=== PATIENT | female | born 1970 | race Caucasian/White ===

== ENCOUNTER 2024-03-09 14:41 | Outpatient (REF) | payer OTHER, SELFPAY ==
[2024-03-09 15:11] LABS: MANUAL DIFF FLAG NO
[2024-03-09 15:29] LABS: Basophils Absolute Auto 0.1 X10*3/uL (0.0-0.2); Basophils Percent Auto 0.7 % (0-2); Eosinophils Absolute Auto 0.1 X10*3/uL (0.0-0.4); Eosinophils Percent Auto 1.9 % (0-4); Hematocrit 41.9 % (37.0-47.0); Hemoglobin 14.4 g/dl (12.0-16.0); Imm Gran Abs Auto 0.01 X10*3/uL (0.00-0.03); Imm Gran Pct Auto 0.1 % (0.0-0.4); Lymphocytes Absolute Auto 2.3 X10*3/uL (1.2-4.9); Lymphocytes Percent Auto 29.8 % (20-40); Mean Corpuscular HGB Conc 34.4 g/dl (31.0-35.0); Mean Corpuscular Hemoglobin 30.1 pg (27.0-33.0); Mean Corpuscular Volume 87.7 fL (80.0-98.0); Mean Platelet Volume 9.4 fL (9.4-12.3); Monocytes Absolute Auto 0.5 X10*3/uL (0.1-1.2); Neutrophils Absolute Auto 4.6 x10*3/uL (2.0-8.3); Neutrophils Percent Auto 60.5 % (45-73); Platelet Count 316 X10*3/uL (160-400); Red Blood Count 4.78 X10*6/uL (4.20-5.50); Red Cell Distribution Width 13.5 % (11.0-16.0); White Blood Count 7.5 X10*3/uL (4.8-10.8)
[2024-03-09 15:32] LABS: Appearance Urine Cloudy; Color Urine Yellow; Glucose Urine UA Negative (Negative); Leukocyte Esterase Urine Small (1+) (Negative); Nitrite Urine Negative (Negative); PH 6.5 (5.0-9.0); UMIC TRIGGER UACC YES; Urine Blood Negative (Negative); Urine Ketones Trace mg/dL (Negative); Urine Protein Negative (Neg-Trace)
[2024-03-09 15:35] LABS: Bacteria Urine None Seen (None Seen); Hyaline Casts Urine 0-2 /LPF (0-2); RBC Urine 0-2 /HPF (0-2); UACC Culture Trigger YES
[2024-03-10 00:53] LABS: Alanine Aminotransferase 18 U/L (0-31); Albumin Level 4.9 g/dL (3.5-5.0); Alkaline Phosphatase 56 U/L (39-117); Anion Gap 14 (12-20); Aspartate Amino Transferase 21 U/L (5-31); Bilirubin Total 0.6 mg/dL (0.0-1.0); Blood Urea Nitrogen 11 mg/dL (9-16); Calcium 10.3 mg/dL (8.4-10.2); Carbon Dioxide 26 mmol/L (22-29); Chloride 103 mmol/L (96-108); Estimated Glomerular Filt Rate > 60; Glucose Random 87 mg/dL (60-115); Potassium 4.2 mmol/L (3.3-5.1); Sodium 139 mmol/L (135-145); Total Protein 8.1 g/dL (6.5-8.0)
[2024-03-12 19:09] LABS: Lyme Abs Screen <0.90 index
[2024-03-14 15:34] LABS: Renin 1.22 ng/mL/h (0.25-5.82)
[2024-03-14 19:44] LABS: Spotted Fever Group IgG Not Detected (Not Detected); Spotted Fever Group IgM Not Detected (Not Detected); Typhus Fever Group IgG Not Detected (Not Detected); Typhus Fever Group IgM Not Detected (Not Detected)
[2024-03-16 11:13] LABS: A. Phagocytophilum Ab IgM <1:20 (<1:20); E. Chaffeensis Ab IgG <1:64 (<1:64); E. Chaffeensis Ab IgM <1:20 (<1:20); Interpretation PAST INFECTION
== END 2024-03-09 14:42 | disposition home or self-care (01) ==
LOC: HO.LAB 14:41
PROVIDERS: PCP Internal Medicine; Visit Provider Physician Assistant
DX: R30.0 Dysuria (principal); T14.8XXA Other injury of unspecified body region, initial encounter; W57.XXXA Bitten or stung by nonvenomous insect and other nonvenomous arthropods, initial encounter
CPT/HCPCS: 36415; 80053; 81001; 82088; 84244; 85025; 86617; 86618; 86666; 86757; 87086

== ENCOUNTER 2025-08-05 14:36 | Outpatient (REF) | payer OTHER, SELFPAY ==
[2025-08-05 18:21] LABS: MANUAL DIFF FLAG NO
[2025-08-05 18:29] LABS: Hematocrit 44.2 % (37.0-47.0); Hemoglobin 14.5 g/dl (12.0-16.0); Imm Gran Abs Auto 0.01 X10*3/uL (0.00-0.03); Imm Gran Pct Auto 0.1 % (0.0-0.4); Lymphocytes Absolute Auto 2.0 X10*3/uL (1.2-4.9); Mean Corpuscular HGB Conc 32.8 g/dl (31.0-35.0); Mean Corpuscular Hemoglobin 29.2 pg (27.0-33.0); Mean Corpuscular Volume 88.9 fL (80.0-98.0); NRBC Abs Auto 0.000 X10*3/uL (0.0-0.012); NRBC Pct Auto 0.0 /100WBC (0.0-0.2); Platelet Count 325 X10*3/uL (160-400); Red Blood Count 4.97 X10*6/uL (4.20-5.50); White Blood Count 6.8 X10*3/uL (4.8-10.8)
[2025-08-05 19:22] LABS: Cholesterol 196 mg/dL (<200); HDL Cholesterol 57 mg/dL (>40); Triglycerides 141 mg/dL (<150)
[2025-08-05 19:42] LABS: Folate 5.1 ng/mL (> or = 4.0); Vitamin B12 409 pg/mL (200-900)
--- OUTSIDE RECORDS SUMMARY | 2025-08-05 21:07 | XMS_ITS | Continuity of Care Document ---
Author Organization [place] [facility], [facility] Address [address] [facility] [address] Assessment No assessment recorded. Plan of Treatment Reminders Order Date Submit Date Provider Last Modified By Organization Details Last Modified Time Details Appointments SDV 2024 02:00P M ORLANDO PHAM Not available Not available Not available ANNUAL EXAM 2025 03:30P M ORLANDO PHAM Not available Not available Not available Lab None recorded. Referral None recorded. Procedures None recorded. Surgeries None recorded. Imaging None recorded. Medication Orders tramadol 50 mg tablet 2024 025 [facility]/Pharmacy #[id number], [address] [place], [address], 08/05/2025 14:35:41 tizanidin e 4 mg tablet 2024 025 [facility]/Pharmacy #2024, [address] [place], [address], 08/05/2025 14:35:36 diclofena c sodium 75 mg tablet,de layed release 2024 025 [facility]/Pharmacy #2024, [address] [place], [address], 08/05/2025 14:35:36 Patient TargetsNo targets recorded. Patient InstructionsNo instructions recorded. Reason for Referral None Reported. Problems Name Problem SNOMED Code Status Onset Date Resolution Date Notes Provider Name and Address Organization Details Recorded Time History of depressi on 044419717 Active 2017 Not Available [facility] 12:28:19 Camacho betts 193532543 Active 2018 Not Available [facility] 0 12:28:19 Lactose intolera nce Active 2018 Not Available [facility] 0 12:28:19 Depressi ve disorder 40971459 Active 2018 recurrent Not Available [facility] 0 12:28:19 Edema of lower extremit y 788745099 Active 2021 ORLANDO PHAM [address] [place], [address], [facility] 2 12:11:30 Easy bruising 131313392 Active 2021 ORLANDO PHAM [address] [place], [address], [facility] 2 12:16:06 Acute urinary tract infectio n 531751997 Active 2022 ORLANDO PHAM [address] [place], [address], [facility] 3 09:45:50 Dysuria 96067992 Active 2023 ORLANDO PHAM [address] [place] [address], [address], [facility] 4 13:32:01 Finding of sensatio n of urinary bladder 041299064 Active 2023 ORLANDO PHAM [address] [place], [address], [facility] 4 13:35:41 Pain of toe of left foot 35514454523 9108 Active 2023 ORLANDO PHAM [address] [place], [address], [facility] 4 13:36:44 Pain in left foot 32378463835 9107 Active 2023 ORLANDO PHAM [address] [place], [address], [facility] 4 11:43:39 Lumbago with sciatica 057890056 Active 2023 ORLANDO PHAM [address] [place], [address], [facility] 4 10:53:02 Eczemato us dermatit is of eyelid 29103581 Active 2024 ORLANDO PHAM [address] [place], [address], [facility] 5 13:37:04 Primary insomnia 9580439 Active 2024 ORLANDO PHAM [address] [place], [address], [facility] 5 15:35:46 Vitamin D deficien cy 34787408 Active 2024 ORLANDO PHAM [address] [place], [address], [facility] 5 15:59:01 Fatigue 06891796 Active 2024 ORLANDO PHAM [address] [place], [address], [facility] 5 15:59:30 Acute low back pain 922697762 Active 2024 ORLANDO PHAM [address] [place], [address], [facility] 5 14:29:38 Problem Notes None recorded. Procedures Surgical History Date Name Laterality Status Provider Name and Address Organization Details Recorded Time 8 Most Recent Mammogram completed [facility] 01/12/2019 14:56:26 4 Date of Last Pap Smear completed [facility] 01/12/2019 14:57:30 Imaging Results None recorded. Procedure Notes None recorded. Medical Equipment None Reported. Allergies Allergen ID Allergen Name Allergen Category Reaction Reaction Severity Criticality Documentation Date Start Date Code Code System Note Provider Name and Address Organization Details Recorded Time 01305 avocado allergeni c extract food,medi cation diarrhea itching other Not available Not available Not available low 08/05/20252021 56128 2 RxNorm GI upset , itchy unrec ogniz ed react ion (text : GI Upset , code: 27427 005) (from exter nal sourc e) unrec ogniz ed react ion (text : Nause a and/o r Vomit ing, code: 86666 000) (from exter nal sourc e) Not Available [employer] - prod 5 14:00:05 64351 prednison e medicatio n Not available Not available Not available 08/05/20252020 8640 RxNorm Other react ion(s ): [place] do Gi upset / Itchy many sympt omsIt lori/H dean Not Available [place] [employer] - prod 5 14:00:05 3094 methylpre dnisolone medicatio n facial swelling Not available Not available 01/16/2019 6902 RxNorm Itch, hives on face [facility] 9 09:00:05 4326 hydrocort isone / neomycin / polymyxin B medicatio n hives moderate Not available 10/22/2020 36272 7 RxNorm ORLANDO PHAM [address] [place], [address], [facility] 1 11:27:52 4327 Flonase medicatio n rash moderate Not available 10/22/2020 12031 RxNorm ORLANDO PHAM [address] [place], [address], [facility] 1 11:28:13 8176 avocado allergeni c extract food anaphylax is Not available high 03/09/2024 96133 2 RxNorm Kike hamilton [facility] 4 13:25:21 Medications Name Sig Start Date Stop Date Status Note LastModified by Organization Details LastModified Time amoxicilli n 500 mg capsule TAKE 1 CAPSULE BY MOUTH 3 TIMES A DAY WITH FOOD, YOGURT, PROBIOTIC S FOR 10 DAYS UNTIL GONE 03/09 completed Not Available Not Available Not Available desonide 0.05 % topical cream APPLY SPARINGLY AND RUB GENTLY INTO THE AFFECTED AREA TWICE A DAY 03/20 completed Not Available Not Available Not Available neomycin-p olymyxin-h ydrocort 3.5 mg/mL-10,0 00 unit/mL-1 % ear solution INSTILL 4 DROPS INTO AFFECTED EAR(S) 3 TIMES A DAY 01/13 completed Not Available Not Available Not Available trazodone 50 mg tablet TAKE 1 TABLET BY MOUTH EVERY DAY AT BEDTIME 2024 active Not Available Not Available Not Avai lable azithromyc in 250 mg tablet TAKE 2 TABLETS BY MOUTH TODAY, THEN TAKE 1 TABLET DAILY FOR 4 DAYS 10/14 completed Not Available Not Available Not Available tizanidine 4 mg tablet Take 1 tablet every 6 hours by oral route as needed for 7 days. 2024 active Not Available Not Available Not Avai lable citalopram 10 mg tablet Take 1 tablet every day by oral route. 05/24 completed Not Available Not Available Not Available meloxicam 15 mg tablet TAKE 1 TABLET BY MOUTH EVERY DAY NEEDED 03/20 completed Not Available Not Available Not Available Tubersol 5 tub. unit/0.1 mL intraderma l injection solution Inject 0.1 mL by intraderm al route. 01/13 completed Not Available Not Available Not Available clobetasol 0.05 % topical cream APPLY THIN COAT TO AFFECTED AREA TWICE A DAY 03/20 completed Not Available Not Available Not Available tretinoin 0.05 % topical cream APPLY THIN LAYER TO FACE 2 X A WEEK AT NIGHT, ADVANCE GRADUALLY TO NIGHTLY AT BED TOLERATED 03/20 completed Not Available Not Available Not Available sulfametho xazole 800 mg-trimeth oprim 160 mg tablet TAKE 1 TABLET BY MOUTH TWICE A DAY FOR 7 DAYS 03/09 completed Not Available Not Available Not Available tramadol 50 mg tablet Take 1 tablet every 6 hours by oral route as directed for 7 days. 2024 active Not Available Not Available Not Avai lable triamcinol one acetonide 0.1 % topical cream APPLY A THIN LAYER TO THE AFFECTED AREA(S) BY TOPICAL ROUTE 2 TIMES PER DAY FOR 2 WEEKS 03/20 completed Not Available Not Available Not Available baclofen 20 mg tablet Take 1 tablet 3 times a day by oral route as needed for 10 days. 03/20 completed Not Available Not Available Not Available alprazolam 0.5 mg tablet take 1 tab 1 hour prior to flight, may repeat every 6 hours as needed while on flight 10/14 completed Not Available Not Available Not Available amoxicilli n 875 mg tablet PLEASE SEE ATTACHED FOR DETAILED DIRECTION S 07/08 completed Not Available Not Available Not Available doxycyclin e monohydrat e 100 mg capsule 01/13 completed Not Available Not Available Not Available diclofenac sodium 75 mg tablet,del ayed release Take 1 tablet twice a day by oral route with meals for 30 days. 2024 active Not Available Not Available Not Avai lable hydroxyzin e HCl 25 mg tablet Take 1 tablet every 6-8 hours by oral route for 30 days. 06/24 completed Not Available Not Available Not Available ergocalcif debi (vitamin D2) 1,250 mcg (50,000 unit) capsule TAKE ONE CAPSULE BY MOUTH ONE TIME PER WEEK 07/08 completed Not Available Not Available Not Available methylpred nisolone 4 mg tablets in a dose pack 24 mg PO on day 1, then decr. by 4 mg/day x5 days per dose pack instructi ons 01/16 completed Not Available Not Available Not Available albuterol sulfate HFA 90 mcg/actuat ion aerosol inhaler TAKE 2 PUFFS BY MOUTH EVERY 4 HOURS 10/14 completed rash on hands Not Available Not Available Not Available fluticason e propionate 50 mcg/actuat ion nasal spray,susp ension [place] 1 spray every day by intranasa l route. 06/24 completed Not Available Not Available Not Available naproxen 500 mg tablet PLEASE SEE ATTACHED FOR DETAILED DIRECTION S 03/09 completed Not Available Not Available Not Available amoxicilli n 875 mg-potassi um clavulanat e 125 mg tablet TAKE 1 TAB (875MG)BY MOUTH 2 TIMES A DAY X10 DAYS. TAKE W FOOD, YOGURT, PROBIOTIC S. FINISH ALL. 03/20 completed Not Available Not Available Not Available oxycodone 5 mg tablet Take 1 tablet every 4 hours by oral route as needed for 7 days. 03/20 completed Not Available Not Available Not Available cortisone Apply once a day 05/24 completed Not Available Not Available Not Available ibuprofen 200mg Take 2 tablet everyday prn 01/13 completed Not Available Not Available Not Available Vitamin D qd active Not Available Not Suzette ilable Not Available M-M-R II (PF) 1,000-12,5 00 TCID50/0.5 mL subcutaneo us solution 01/13 completed Not Available Not Available Not Available Flowflex COVID-19 Antigen Home Test kit FOLLOW INSTRUCTI ONS INCLUDED WITH THE PACKAGE. 03/09 completed Not Available Not Available Not Available Vitals Date Recorded Body height Body mass index (BMI) Body weight Heart rate Oxygen saturation Systolic And Diastolic Provider Name and Address Organization Details Last Updated DateTime 5 167.64 cm 24.9 kg/m2 18303.2 2 g 93 /min 98 % 128/78 mm[Hg] [facility] 5 14:09:12 Social History Question Answer Notes LastModified by Organizat ion Details LastModified Time Tobacco Smoking Status Former Smoker Not Available [facility] 06/24/2020 03:36:23 What Was The Date Of Your Most Recent Tobacco Screening? 08/05/2025 [email or web address] Information not available 08/05/2025 How Many Years Have You Smoked Tobacco? 5 [id number] Information not available 06/24/2020 Sex: Unknown Functional Status None recorded. Mental Status None recorded. Family History Relationship Description Onset Age of this Age Resolved Age Notes LastModified by Organization Details LastModified Time Mother Family history of malignant neoplasm Breast cancer [email or web address] Not available 01/12/2019 14:54:22 Father Coronary arterioscler osis sbucko Not available 2018 14:54:33 Medical History No medical history recorded. Gynecological History Statement/Question Response Date of Last Pap Smear 07/02/2014 Most Recent Mammogram 07/06/2018 Obstetrics History GPAL:G 0 P 0 0 0 0 Immunizations Vaccine Type Date Status Note Provider Nam e and Address Organization Details Recorded Time Tdap 11/02/2017 completed [facility] 07/08/2020 11:13:18 MMR 05/16/2020 completed Esperanza Jeff [facility] 07/08/2020 11:13:18 COVID-19, mRNA, LNP-S, PF, 100 mcg/0.5mL dose or 50 mcg/0.25mL dose 08/19/2020 completed Yuliet Jiménez [facility] 09/22/2020 09:47:51 COVID-19, mRNA, LNP-S, PF, 100 mcg/0.5mL dose or 50 mcg/0.25mL dose 09/19/2020 completed Yuliet Jiménez [facility] 09/22/2020 09:48:00 Past Encounters Encounter ID Performer Location Encounter Start Date Encounter Closed Date Diagnosis/Indication Diagnosis SNOMED-CT Code Diagnosis ICD10 Code Diagnosis IMO Codes Diagnosis Note [id number] Steven Segal [facility] [address] [facility],[place] [address] 08/05/2025 13:57:05 08/05/2025 14:37:39 Acute low back pain 349374845 M54.50 [id number] Health Concerns Section Related Observation LastModified by Organization Detai ls LastModified Time None Recorded Concern Status LastModified by Organization Details LastModified Time None Recorded Payers Encounter Date Sequence Insurance Name Policy Number Policy Fitzgerald Covered Member ID Fitzgerald Member ID Guarantor Name 08/05/2025 1 [employer] [id number] Rob Hargrove [id number] Rob Hargrove Notes Date Note Type Note Provider Name a nd Address Organization Details Recorded Time 08/05/2025 text/html ROS as noted in the HPI c/o low back pain the patient reports pain in the L side on the low backaround L3 to L4no radiation down the left legthe patient reports that the only thing that happened was her leaning down to close the reading intervention teacher, then sudden stabbing painlocalized, prob msk/msk strain, area is tight and inflamed, tender to palpitition on exam recommended alt therapy, previous treatment was ineffective, changing msk relaxer, new anti inflammatory and adding tramadol as opposed to oxy which patient would like to avoid use of will fu in a week to see how she is never got the XR of her back, script is still active, can go after today's appt OR[place]O PHAM [address] [facility], [place], [address], [facility] 08/05/2025 14:37:37 OBGyn Episode No OBEpisode recorded.
--- OUTSIDE RECORDS SUMMARY | 2025-08-05 21:08 | XMS_ITS | Encounter Summary ---
Author Organization [facility] Address [address] [facility] [address] [place] [address] Phone Care Team Providers Care Plater Barrel Name Role Phone Steven Segal Primary Care Provider [phone] EnriqueSteven dawson Unavailable Katerin Guallpa SEAM CHECKER Unavailable Yue Chambers NP Unavailable Clarissa Barnes MD Unavailable Lewis Kong MD Unavailable Unavailable Kathy Celestin SEAM CHECKER Unavailable Lynne Hays SEAM CHECKER Unavailable [phone] Pema Corea MD Unavailable Encounter Details Date Type Department Care Team (Latest Contact Info) Description 07/08/2020 Transcribe Orders Virtual Department [address] [place] [address] Honey Rascon PA [address] [place] [address] [place] [address] Other abnormalities of breathing (Primary Dx) Social History Tobacco Use Types Packs/Day Years Used Date Smoking Tobacco: Never Smokeless Tobacco: Never Alcohol Use Standard Drinks/Week Comments No 0 (1 standard drink = 0.6 oz pur e alcohol) Comments No Sex and Gender Information Value Date Recorded Sex Assigned at Female 01/03/2022 12:31 PM EDT Legal Sex Female 5:05 PM EST Gender Identity Female 01/03/2022 12:31 PM EDT Sexual Orientation Straight 01/03/2022 12 :32 PM EDT Occupation Industry Job Start Date Job End Date priscilla's Not on file Not on file Not on file documented as of this encounter Plan of Treatment Not on file documented as of this encounter Results * XR CHEST PA AND LATERAL 2 VIEWS (07/11/2020 11:49 AM EST) Anatomical Region Laterality Modality Chest Computed Radiogr aphy 07/11/2020 12:0 7 PM EST Impressions 07/11/2020 12:08 PM EST No evidence of active cardiopulmonary disease. POS [id number] Narrative 07/11/2020 12:08 PM EST No comparison studies are available. Frontal and lateral views reveal the lungs to be well-expanded and overall clear without focal infiltrates or pleural effusions present. The heart and pulmonary vessels are within normal limits in size and the visualized bony thorax appears intact. Procedure Note Fermin Wei MD - 07/11/2020 No comparison studies are available. Frontal and lateral views reveal thelungs to be well-expanded and overall clear without focal infiltrates orpleural effusions present. The heart and pulmonary vessels are withinnormal limits in size and the visualized bony thorax appears intact. IMPRESSION: No evidence of active cardiopulmonary disease. POS [id number] Honey PERRY IMG XR CHEST Final Resul t documented in this encounter Visit Diagnoses Diagnosis Other abnormalities of breathing- Primary Other abnormalities of breathing documented in this encounter Care Teams Plater Barrel Relationship Specialty Start Date End Date Steven Segal DO PCP - General 02/19/14 Steven Segal DO Historical LMR Provider 06/06/17 Katerin Guallpa NP [address] [facility] [address] [place] [address] Historical LMR Provider 06/06/17 2 Yue Chambers NP [address] [place] [address] Historical LMR Provider 06/06/17 2 Clarissa Barnes MD [address] [address] Historical LMR Provider 06/06/17 08/29/21 Lewis Kong MD Historical LMR Provider 06/06/17 08/29/21 Kathy Celestin NP [address] [place] [address] [email or web address] Historical LMR Provider 06/06/17 2 Lynne Hays NP [address] [place] [address] Historical LMR Provider 06/06/17 2 Pema Corea MD [address] [facility], 2nd [place] [address] Historical LMR Provider 06/06/17 documented as of this encounter Additional Source Comments The information contained in this document represents components of the legal health record. It is not the complete legal health record.[facility]
--- OUTSIDE RECORDS SUMMARY | 2025-08-05 21:08 | XMS_ITS | Encounter Summary ---
Author Organization [facility] Address [address] [facility] [address] [place] [address] Phone Care Team Providers Care Swimming Pool Servicer Name Role Phone Steven Segal DO Primary Care Provider [phone] Steven Segal DO Unavailable Katerin Guallpa PUBLIC HEALTH DOCTOR Unavailable [phone] Yue Chambers NP Unavailable Clarissa Barnes MD Unavailable [phone] Lewis Kong MD Unavailable Unavailable Kathy Celestin PUBLIC HEALTH DOCTOR Unavailable Lynne Hays PUBLIC HEALTH DOCTOR Unavailable [phone] Pema Corea MD Unavailable Encounter Details Date Type Department Care Team (Late st Contact Info) Description 07/07/2018 Ancillary Orders Virtual Department [address] [place] [address] Steven Segal DO [address] [facility] [address] [place] [address] Visit for screening mammogram Social History Tobacco Use Types Packs/Day Years [...] Industry Job Start Date Job End Date josephs Not on file Not on file Not on file documented as of this encounter Plan of Treatment Not on file documented as of this encounter Visit Diagnoses Diagnosis Visit for screening mammogram documented in this encounter Care Teams Swimming Pool Servicer Relationship Specialty Start Date End Date Steven Segal DO PCP - General 02/19/14 Steven Segal DO Historical LMR Provider 06/06/17 Katerin Guallpa NP [address] [place] [address] Historical LMR Provider 06/06/17 2 Yue Chambers PUBLIC HEALTH DOCTOR [address] [place] [address] Historical LMR Provider 06/06/17 2 Clarissa Barnes MD [address] [place] [address] Historical LMR Provider 06/06/17 08/29/21 Lewis Kong MD Historical LMR Provider 06/06/17 08/29/21 Kathy Celestin PUBLIC HEALTH DOCTOR [address] [place] [address] [email or web address] Historical LMR Provider 06/06/17 2 Lynne Hays NP [address] [place] [address] Historical LMR Provider 06/06/17 2 Pema Corea MD [address] [facility] [place] [address] [email or web address] Historical LMR Provider 06/06/17 documented as of this encounter Additional Source Comments The information contained in this document represents components of the legal health record. It is not the complete legal health record.[facility]
--- OUTSIDE RECORDS SUMMARY | 2025-08-05 21:08 | XMS_ITS | Encounter Summary ---
Author Organization [facility] Address [address] [employer] [facility] [address] [place] [address] Phone Care Team Providers Care School Bus Driver/Teacher Assistant Name Role Phone Steven Segal Primary Care Provider [phone] EnriqueSteven dawson Unavailable Katerin Guallpa DEPARTMENT HEAD COLLEGE [employer] UNIVERSITY Unavailable Yue Chambers NP Unavailable Clarissa Barnes MD Unavailable [phone] Lewis Kong MD Unavailable Unavailable Kathy Celestin DEPARTMENT HEAD COLLEGE OR UNIVERSITY Unavailable Lynne Hays DEPARTMENT HEAD COLLEGE OR UNIVERSITY Unavailable [phone] Pema Corea MD Unavailable Encounter Details Date Type Department Care Team (Latest Contact Info) Description 07/11/2020 Transcribe Orders Virtual Department [address] [place] [address] Honey Rascon PA [address] [place] [address] [place] [address] Other abnormalities of breathing (Primary Dx) Social [...] as of this encounter Visit Diagnoses Diagnosis Other abnormalities of breathing- Primary documented in this encounter Care Teams School Bus Driver/Teacher Assistant Relationship Specialty Start Date End Date Steven Segal DO PCP - General 02/19/14 Steven Segla DO Historical LMR Provider 06/06/17 Katerin Guallpa, DEPARTMENT HEAD COL[employer]GE [employer] UNIVERSITY [address] [place] [address] Historical LMR Provider 06/06/17 2 Yue Chambers DEPARTMENT HEAD [employer] UNIVERSITY [address] [place] [address] Historical LMR Provider 06/06/17 2 Clarissa Barnes MD [address] [place] [address] Historical LMR Provider 06/06/17 08/29/21 Lewis Kong MD Historical LMR Provider 06/06/17 08/29/21 Kathy Celestin, DEPARTMENT HEAD [employer] UNIVERSITY [address] [place] [address] [email or web address] Historical LMR Provider 06/06/17 2 Lynne Hays NP [address] [place] [address] Historical LMR Provider 06/06/17 2 Pema Corea MD [address] [facility], [address] [place] [address] [email or web address] Historical LMR Provider 06/06/17 documented as of this encounter Additional Source Comments The information contained in this document represents components of the legal health record. It is not the complete legal health record.[facility]
--- OUTSIDE RECORDS SUMMARY | 2025-08-05 21:08 | XMS_ITS | Encounter Summary ---
Author Organization [facility] Address [address] [place] [phone] Phone Care Team Providers Care Naval Engineer Name Role Phone Steven Segal DO Primary Care Provider [phone] Steven Segal DO Unavailable Encounter Details Date Type Department Care Team (Late st Contact Info) Description 06/28/2024 Procedure Pass [facility], [address] [address] Social History Tobacco Use Types Packs/Day Years Used Date Smoking Tobacco: Former Cigarettes Smokeless Tobacco: Never Alcohol Use Standard Drinks/Week Comments No 0 (1 standard drink = 0.6 oz pur e alcohol) Education Answer Date Recorded Are you interested in more education? Not on lloyd e 01/02/2023 Are you concerned about learning? Not on file 01/02/2023 No 01/02/2023 No 01/02/2023 Digital Access Answer Date Recorded No 01/15/2023 No 01/15/2023 Reliable internet access at home? Not on file 01/15/2023 Device with a working camera? Not on file Comments No Sex and Gender Information Value [...] documented as of this encounter Visit Diagnoses Not on filedocumented in this encounter Care Teams Naval Engineer Relationship Specialty Start Date End Date EnriqueSteven dawson DO [email or web address] PCP - General 02/19/14 Luzma Steven ArenasDO [email or web address] Historical LMR Provider 06/06/17 documented as of this encounter Additional Source Comments The information contained in this document represents components of the legal health record. It is not the complete legal health record.[facility]
--- OUTSIDE RECORDS SUMMARY | 2025-08-05 21:08 | XMS_ITS | Encounter Summary ---
Author Organization [facility] Address [address] [place] [phone] Phone Care Team Providers Care Synchro Assembler Name Role Phone Steven Segal DO Primary Care Provider [phone] Steven Segal DO Unavailable Encounter Details Date Type Department Care Team (Latest Contact Info) Description 03/12/2024 Transcribe Orders Virtual Department [address] [place] [address] Honey Rascon PA [address] [facility] [place] [address] [place] [address] Dysuria (Primary Dx) Social History Tobacco Use Types [...] documented as of this encounter Results * US Bladder (2024 12:14 PM EDT) Anatomical Region Laterality Modality Abdomen, Kidney Ultrasound 2024 12:3 3 PM EDT Impressions 2024 12:34 PM EDT 1. Normal bladder ultrasound. Narrative 2024 12:34 PM EDT US BLADDER Referring clinician's provided indication for this examination in [facility]: Outside Radiology Order; dysuria TECHNIQUE: Bladder Ultrasound. COMPARISON: None FINDINGS: Bladder: Bladder wall normal in thickness. No stone or mass. Bilateral ureteral jets seen. Prevoid bladder volume is 222 mL. There is no post void bladder residual. Procedure Note Julieta Mi MD - 2024 US BLADDER Referring clinician's provided indication for this examination in Epic:Outside Radiology Order; dysuria TECHNIQUE: Bladder Ultrasound. COMPARISON: None FINDINGS: Bladder: Bladder wall normal in thickness. No stone or mass. Bilateralureteral jets seen. Prevoid bladder volume is 222 mL. There is no postvoid bladder residual. IMPRESSION: 1. Normal bladder ultrasound. Honey PERRY IMG US RENAL Final Resul t documented in this encounter Visit Diagnoses Diagnosis Dysuria- Primary Dysuria documented in this encounter Care Teams Synchro Assembler Relationship Specialty Start Date End Date Steven Segal DO PCP - General 02/19/14 Steven Segal DO Historical LMR Provider 06/06/17 documented as of this encounter Additional Source Comments The information contained in this document represents components of the legal health record. It is not the complete legal health record.[facility]
--- OUTSIDE RECORDS SUMMARY | 2025-08-05 21:08 | XMS_ITS | Encounter Summary ---
Author Organization [facility] Address [address] [address] [place] [address] Phone Care Team Providers Care Servicing Manager Name Role Phone Steven Segal Primary Care Provider [phone] LuzmaSteven Unavailable Katerin Guallpa HOMEOPATHIC DOCTOR Unavailable Yue Chambers NP Unavailable Clarissa Barnes MD Unavailable [phone] Lewis Kong MD Unavailable Unavailable Kathy Celestin HOMEOPATHIC DOCTOR Unavailable Lynne Hays HOMEOPATHIC DOCTOR Unavailable [phone] Pema Corea MD Unavailable [phone] Encounter Details Date Type Department Care Team (Late st Contact Info) Description 12/26/2020 Procedure Pass [address] [address] Social History Tobacco Use Types Packs/Day Years [...] on filedocumented in this encounter Care Teams Servicing Manager Relationship Specialty Start Date End Date Luzma Steven ArenasDO PCP - General 02/19/14 Steven Segal DO Historical LMR Provider 06/06/17 Katerin Guallpa, HOMEOPATHIC DOCTOR [address] [place] [address] Historical LMR Provider 06/06/17 2 Yue Chambers, HOMEOPATHIC DOCTOR [address] [place] [address] Historical LMR Provider 06/06/17 2 Clarissa Barnes MD [address] [place] [address] Historical LMR Provider 06/06/17 08/29/21 Lewis Kong MD Historical LMR Provider 06/06/17 08/29/21 Kathy Celestin, HOMEOPATHIC DOCTOR [address] [place] [address] [email or web address] Historical LMR Provider 06/06/17 2 Lynne Hays, HOMEOPATHIC DOCTOR [address] [place] [address] Historical LMR Provider 06/06/17 2 Pema Corea MD [address] [place] [address], [address] [place] [address] [email or web address] Historical LMR Provider 06/06/17 documented as of this encounter Additional Source Comments The information contained in this document represents components of the legal health record. It is not the complete legal health record.[facility]
--- OUTSIDE RECORDS SUMMARY | 2025-08-05 21:08 | XMS_ITS | Data Portability ---
Author Organization [facility], Telehealth Patient Home Address [address] [place] [address] Assessment Encounter Date Assessment Date Assessment LastModified by Organization Details LastModified Time 01/13/2021 01/13/2021 doing well no major issues has been eating more carbs than usual but has been very active and is staying fit [email or web address] Not available 01/13/2021 09:32:53 03/08/2022 03/08/2022 Patient agreed and verbally consents to this audio and video Telehealth appt via a secure platform [email or web address] Not available 03/08/2022 12:15:53 Plan of Treatment Reminders Order Date Submit Date Provider Last Modified By Organization Details Last Modified Time Details Appointments SDV 2024 02:00P M [facility]O PHAM Not available Not available Not available ANNUAL EXAM 2025 03:30P M ORLANDO PHAM Not available Not available Not available Lab lipid panel, serum 2024 025 [facility] (Outpatient), [address] [place] [address], [address], 03/20/2025 16:02:49 vitamin D, 25-hydrox y, total, serum 2024 025 [facility] (Outpatient), [address] [place] [address], [address], 03/20/2025 16:02:49 brca (1+2) mutation analysis, blood or tissue 2024 025 [facility] (Outpatient), [address] [place], [address], 03/20/2025 15:44:06 ca 125, serum 2024 025 [facility] (Outpatient), [address] [place], [address], 03/20/2025 15:44:07 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, blood or tissue 2024 025 [facility] (Outpatient), [address] [place], [address], 03/20/2025 15:44:07 vitamin B12 + folate, serum or blood 2024 [facility] (Outpatient), [address] [place], [address], 03/20/2025 16:02:49 iron + TIBC + ferritin, serum 2024 025 [facility] (Outpatient), [address] [place], [address], 03/20/2025 16:02:49 TSH + free T4, serum 2024 025 [facility] (Outpatient), [address] [place], [address], 03/20/2025 16:02:49 CBC w/ auto diff 2024 025 [facility] (Outpatient), [address] [place], [address], 03/20/2025 16:02:49 hemoglobi n A1c, QN, blood 2024 025 [facility] (Outpatient), [address] [place], [address], 03/20/2025 16:02:49 urinalysi s complete, reflex culture 2023 024 [facility], [address] [place] [address], [address], 03/09/2024 13:41:44 CMP, serum or plasma 2023 024 [facility], [address] [place] [address], [address], 03/09/2024 13:41:44 CBC w/ auto diff 2023 024 [facility], [address] [place] [address], [address], 03/12/2024 12:00:07 renin activity + aldostero ne, plasma 2023 024 [facility], [address] [place] [address], [address], 03/09/2024 13:41:45 ehrlichia chaffeens is, igg+igm Ab, serum 2023 024 [facility], [address] [place] [address], [address], 03/09/2024 13:41:45 anaplasma phagocyto philum (hga/hge) igg+igm Ab, serum 2023 024 [facility], [address] [place] [address], [address], 03/09/2024 13:41:44 lyme disease igg+igm, serum, reflex western blot 2023 024 [facility], [address] [place] [address], [address], 03/13/2024 11:44:59 rickettsi a rickettsi i igg+igm Ab, serum 2023 024 [facility], [address] [place] [address], [place], [address], 03/09/2024 13:41:44 CMP, serum or plasma 2020 [facility], [address] [place] [address], [address], 01/16/2021 12:42:14 CBC w/ auto diff 2020 [facility], [address] [place] [address], [address], 01/16/2021 12:42:13 lipid panel, blood 2020 [facility], [address] [place] [address], [address], 01/16/2021 12:42:14 vitamin D, 25-hydrox y, total, serum 2020 [facility], [address] [place] [address], [address], 01/16/2021 13:09:54 TSH, serum or plasma 2020 021 [facility], [address] [place] [address], [address], 01/16/2021 12:42:14 Referral None recorded. Procedures None recorded. Surgeries None recorded. Imaging US, bladder 2023 024 [email or web address] Not available 03/12/2024 08:32:23 XR, foot, 3 or more view 2023 024 [email or web address] Not available 03/23/2024 09:20:05 US, duplex, venous, lower extremity 2021 022 [email or web address] [facility] [place], [facility], [place] [address], [place], [address], 03/26/2022 13:45:39 Medication Orders tramadol 50 mg tablet 2024 025 [facility], [address] [place], [address], 08/05/2025 14:35:41 tizanidin e 4 mg tablet 2024 025 [facility] [address] [place], [address], 08/05/2025 14:35:36 diclofena c sodium 75 mg tablet,de layed release 2024 025 [facility] [address] [place], [address], 08/05/2025 14:35:36 trazodone 50 mg tablet 2024 025 [facility] [address] [place], [address], 04/14/2025 08:45:54 Patient TargetsNo targets recorded. Patient InstructionsNo instructions recorded. Reason for Referral None Reported. Results Created Date Observation Date Name Description Value Unit Range Abnormal Flag Note LastModifiedBy Organization Detail LastModifiedTime 04/07/20 22 04/05/2022 US, tao x, emily s, lower [facility], [place] mity No observ ation record ed. [facility] [place] [address] [place] [address], [address], 04/19/2022 10:13:19 06/27/20 22 06/22/2022 MAMMO , scree yifan, digit al, bilat eral No observ ation record ed. [facility] [address] [place] [address], [address], 06/28/2022 08:28:52 07/26/20 23 07/22/2023 MAMMO , scree yifan, digit al, bilat eral No observ ation record ed. [address], [address], 07/26/2023 09:06:53 03/23/20 24 03/22/2024 XR, foot, 3 or more view No observ ation record ed. [email or web address] [facility] (Scheduling Dept) [address] [place], [address], 03/23/2024 11:43:17 01/18/20 25 01/16/2025 MAMMO , scree yifan, digit al, bilat eral No observ ation record ed. [email or web address] [address] [place], [address], 01/17/2025 17:07:12 Result Notes None recorded. Problems Name Problem SNOMED Code Status Onset Date Resolution Date Notes Provider Name and Address Organization Details Recorded Time History of depressi on 918875715 Active 2017 Not Available [facility] 0 12:28:19 [place] e 451229244 Active 2018 Not Available [facility] 0 12:28:19 Lactose intolera nce Active 2018 Not Available [facility] 0 12:28:19 Depressi ve disorder 43317179 Active 2018 recurrent Not Available [facility] 0 12:28:19 Edema of lower extremit y 655559341 Active 2021 OR[facility]O PHAM [address] [place], [address], [facility] 2 12:11:30 Easy bruising 789741687 Active 2021 ORLANDO PHAM [address] [place], [address], [facility] 2 12:16:06 Acute urinary tract infectio n 872817017 Active 2022 OR[place]O PHAM [address] [place], [address], [facility] 3 09:45:50 Dysuria 29189559 Active 2023 ORLANDO PHAM [address] [place], [address], [facility] 4 13:32:01 Finding of sensatio n of urinary bladder 034363140 Active 2023 ORLANDO PHAM [address] [place], [address], [facility] 4 13:35:41 Pain of toe of left foot 13521425372 9108 Active 2023 ORLANDO PHAM [address] [place], [address], [facility] 4 13:36:44 Pain in left foot 23603349023 9107 Active 2023 ORLANDO PHAM [address] [place], [address], [facility] 4 11:43:39 Lumbago with sciatica 343982364 Active 2023 ORLANDO PHAM [address] [place], [address], [facility] 4 10:53:02 Eczemato us dermatit is of eyelid 52837655 Active 2024 OR[facility] PHAM [address] [place], [address], [facility] 5 13:37:04 Primary insomnia 8826074 Active 2024 OR[facility]O PHAM [address] [place], [address], [facility] 5 15:35:46 Vitamin D deficien cy 89837848 Active 2024 ORLANDO PHAM [address] [place], [address], [facility] 5 15:59:01 Fatigue 91612348 Active 2024 OR[facility]O PHAM [address] [place], [address], [facility] 5 15:59:30 Acute low back pain 607713802 Active 2024 ORLANDO PHAM [address] [place], [address], [facility] 5 14:29:38 Problem Notes None recorded. Procedures Surgical History Date Name Laterality Status Provider Name and Address Organization Details Recorded Time 8 Most Recent Mammogram completed [facility] 01/12/2019 14:56:26 4 Date of Last Pap Smear completed [facility] 01/12/2019 14:57:30 Imaging Results None recorded. Procedure Notes None recorded. Medical Equipment None Reported. Allergies Allergen ID Allergen Name Allergen Category Reaction Reaction Severity Criticality Documentation Date Start Date Code Code System Note Provider Name and Address Organization Details Recorded Time 54478 avocado allergeni c extract food,medi cation diarrhea itching other Not available Not available Not available low 08/05/20252021 29862 2 RxNorm GI upset , itchy unrec ogniz ed react ion (text : GI Upset , code: 72234 005) (from exter nal sourc e) unrec ogniz ed react ion (text : Nause a and/o r Vomit ing, code: 57454 000) (from exter nal sourc e) Not Available [employer] - External Data Service - prod 5 14:00:05 60720 prednison e medicatio n Not available Not available Not available 08/05/20252020 8640 RxNorm Other react ion(s ): [place] do Gi upset / Itchy many sympt omsIt lori/H dean Not Available [employer] External Data Service - prod 14:00:05 3094 methylpre dnisolone medicatio n facial swelling Not available Not available 01/16/2019 6902 RxNorm Itch, hives on face [facility] 9 09:00:05 4326 hydrocort isone / neomycin / polymyxin B medicatio n hives moderate Not available 10/22/2020 34595 7 RxNorm [facility] PHAM [address] [place], [address], [facility] 1 11:27:52 4327 Flonase medicatio n rash moderate Not available 10/22/2020 55941 RxNorm [facility] PHAM [address] [place], [address], [facility] 1 11:28:13 8176 avocado allergeni c extract food anaphylax is Not available [facility] 03/09/2024 99985 2 [facility]Norm [facility] 4 13:25:21 Medications Name Sig Start Date [...] propionate 50 mcg/actuat ion nasal spray,susp ension [place] 1 spray every day by intranasa l [...] and Address Organization Details Last Updated DateTime 1 167.64 cm 25.6 kg/m2 16413.0 3 g 96 /min 98 % 110/60 mm[Hg] [facility] 1 09:23:40 Date Recorded Body height Body mass index (BMI) Body weight Heart rate Oxygen saturation Systolic And Diastolic Provider Name and Address Organization Details Last Updated DateTime 4 167.64 cm 24.9 kg/m2 59695.2 2 g 82 /min 99 % 114/74 mm[Hg] Kike [facility] 4 13:26:45 Date Recorded Body height Body mass index (BMI) Body weight Heart rate Oxygen saturation Systolic And Diastolic Provider Name and Address Organization Details Last Updated DateTime 5 167.64 cm 24.9 kg/m2 72682.2 2 g 79 /min 98 % 108/78 mm[Hg] Cristavilma Lemos[facility] 5 15:32:05 Date Recorded Body height Body mass index (BMI) Body weight Heart rate Oxygen saturation Systolic And Diastolic Provider Name and Address Organization Details Last Updated DateTime 5 167.64 cm 24.9 kg/m2 27138.2 2 g 93 /min 98 % 128/78 mm[Hg] Crista Roger [facility] 5 14:09:12 Social History Question Answer Notes LastModified by Organizat ion Details LastModified Time Tobacco Smoking Status Former Smoker Not Available [facility] 06/24/2020 03:36:23 What Was The Date Of Your Most Recent Tobacco Screening? 08/05/2025 [email or web address] Information not available 08/05/2025 How Many Years Have You Smoked Tobacco? 5 [id number] Information not available 06/24/2020 Sex: Unknown Functional [...] Organization Details Recorded Time Tdap 11/02/2017 completed Esperanza hamilton [facility] 07/08/2020 11:13:18 MMR 05/16/2020 completed Esperanza hamilton, [facility] 07/08/2020 11:13:18 COVID-19, mRNA, LNP-S, PF, 100 mcg/0.5mL dose or 50 mcg/0.25mL dose 08/19/2020 completed Yuliet hamilton [facility] 09/22/2020 09:47:51 COVID-19, mRNA, LNP-S, PF, 100 mcg/0.5mL dose or 50 mcg/0.25mL dose 09/19/2020 completed Yuliet hamilton [facility] 09/22/2020 09:48:00 Past Encounters Encounter ID Performer Location Encounter Start Date Encounter Closed Date Diagnosis/Indication Diagnosis SNOMED-CT Code Diagnosis ICD10 Code Diagnosis IMO Codes Diagnosis Note [id number] Steven Segal [facility] [address] [place] [address] 12/12/2017 10:26:56 12/12/2017 11:12:31 Allergic rhinitis 87942509 J30.2 I think the undereye swelling may be related to allergies suggest visine-A and zyrtec continue cortisone oint topically qd x 1-2 weeks f/u if no change or improvemen t Rib pain 605381719 R07.8 1 possible costochond ritis, given pain is reproducib le with palpation may be related to fall she had several days prior to pain starting continue ibuprofen and heating pad as it has improved significan tly since starting f/u if pain persists or worsen [id number] Steven Segal [facility] [address] [place] [place] [address] 05/24/2018 10:01:17 05/24/2018 10:29:35 Dermatitis of eyelid 93526528 H01.139 Acute uppe r respiratory infection 83901425 J06.9 MUCINEX DM + SUDAFED F/U IF NEEDED [id number] Steven Segal [facility] [address],[place] [address] 08/23/2018 09:39:13 08/23/2018 11:26:31 Abdominal pain 70788423 R10.9 appears to be resolved at this point unclear if sx were due to diary Diarrhea 17155472 R19.7 appears to be resolved at this point will consider further work up if recurs, but at this point testing would be inappropri ate may consider experiment ing with dairy products and if no sx, it is likely her sx were related to a transient stomach infection [id number] Steven Segal [facility] [address], [place] [address] 10/24/2018 09:54:30 10/24/2018 11:31:41 Allergic reaction 176095532 T78.40XA likely due to the new cream will avoid Contact dermatitis 47680 004 L25.9 triamcinol one is clumpy would like to try new cream [id number] Steven Segal [facility] [address], [place] [address] 01/16/2019 08:53:50 01/16/2019 09:15:25 Adult health examination 976370911 Z00.00 Screening for cardiovascular system disease 938901813 Z13.6 Vitamin D deficiency 347 39545 E55.9 [id number] Steven Segal [facility] [address], [place] [address] 05/19/2020 09:22:50 05/19/2020 09:40:32 Tuberculosis screening 724587953 Z11.1 [id number] Steven Segal [facility] [address] [place] [address] 05/21/2020 09:56:23 05/21/2020 11:14:56 Tuberculosis screening 067448989 Z11.1 [id number] Steven Segal [facility] [address], [place] [address] 07/08/2020 11:10:18 07/08/2020 11:42:28 Unable to take deep breaths 440521076 R06.89 will start with XR and inhaler and see if improvemen t may need CT may have component of anxiety with it as well would like to r/o other explanatio ns first ie asthma/kamryn ctive airway disease given hx of smoking History of depression 16 5337358 Z86.59 stable [id number] Steven Segal DO [facility] [address],[place] [address] 09/15/2020 14:58:57 09/15/2020 16:41:55 Acute otitis media 5656563 H65.02 will trial on abx and see if improvemen t Left later al elbow tendinopathy 3483838043 48068 M77.12 if no effect with higher dose NSAID, will set up with ortho will call if she would like referral patient agrees [id number] Steven Segal DO [facility] [address],[place] [address] 10/14/2020 16:12:50 10/14/2020 17:00:23 Otalgia of left ear 5765512714 885774 H92.02 will start patient on ear solution with steriod component to dry out fluid as well as flonase to dry out sinuses and/or clear sinuses so they drain correctly [id number] Steven Segal DO [facility] [address] [place] [address] 10/22/2020 09:50:11 10/22/2020 14:52:11 Pruritic rash 47982176 L28.2 patient is having an allergic reaction to either prior ear drop or current augmentin patient will stop all medication s and use benadryl twice per day Allergy to drug 12243172 2 Z88.1 patient will fu if no improvemen t to rash, should fade with time as the medication is cleared from her system Otalgia of left ear 1089 781174 626504 H92.02 patient will fu with ENT for evaluation since she has now failed three different abx and has no improvemen t in left ear pain [id number] tSeven Segal DO [facility] [address] [address] 01/13/2021 09:18:07 01/13/2021 10:00:56 Active or passive immunization 923589044 Z23 up to date Adult heal th examination 444473945 Z00.00 doing very well denies any issues [id number] Steven Segal [facility] [address] [facility] [address] [place] [address] 03/08/2022 10:10:08 03/08/2022 12:36:45 Edema of lower extremity 658039117 R60.0 will fu with getting labs from [facility] and ordering a US duplex LE bilateral to see if she has an insuffienc y or inflammati on Easy bruising 600002470 R58 waiting for labwork from [id number] Steven Segal DO [facility] [address] [facility] [address] [place] [address] 03/09/2024 13:20:24 03/09/2024 15:50:15 Active or passive immunization 720539502 Z23 advised Adult [facility] examination 484643155 Z00.00 BP is excellent Depression screening 171 239074 Z13.31 negative Dysuria 67177826 R30.0 patient still having urinary symptoms at this time Finding of sensation of urinary bladder 896319728 N32.89 will set up with testing for her bladder symptoms Tick bite 87533089 W57.X XXA will set up with lab work Pain of to e of left foot 0005362934 86529 M79.675 [id number] Steven Segal [facility] [address] [facility] [address] [place] [address] 03/20/2025 15:21:59 03/20/2025 16:18:42 Depression screening 915455393 Z13.31 negative Primary insomnia 2422137 F51.01 42189 trial trazodone 50 mg can start with half a tablet General ex amination of patient 862573692 Z00.00 782314 BP is excellent Family his tory of breast cancer 144629530 Z80.3 3783316 will set up with gene testing Vitamin D deficiency 347 63344 E55.9 50180 will recheck levels Fatigue 71878675 R53.83 5694120 will set up with retest levels Family his tory of Cardiovascular disease 047222552 Z82.49 [id number] will set up with recheck cholestero l [id number] Steven Segal DO [facility] [address],[place] [address] 08/05/2025 13:57:05 08/05/2025 14:37:39 Acute low back pain 749277998 M54.50 94361764 Health Concerns Section Related Observation LastModified by Organization Detai ls LastModified Time None Recorded Concern Status LastModified by Organization Details LastModified Time None Recorded Advance Directives Directive None Recorded Payers Insurance Date Sequence Insurance Name Policy Number Policy Fitzgerald Covered Member ID Fitzgerald Member ID Guarantor Name 08/05/2025 1 ANNMARIE [id number] Rob Hargrove [id number] Rob Hargrove Notes Date Note Type Note Provider Name a nc Address Organization Details Recorded Time 1 text/html Annual WellnessReported by PatientSocial/Behavio ral HistoryFor diet and nutrition, patient reportshealthy diet. For fracture risk, patient reportsno history of fractures,no recent explained fracture,no sudden unexplained fractures, andno previous musculoskeletal injuries. For physical activity, patient reportsexercises on a regular basis,recent increase in physical activity, andgood physical condition. For additional lifestyle factors, patient reportsno tobacco use,no alcohol intake, andstopped drinking alcohol.Mental Status:For depression risk, patient reportsnever feels sad, empty, or tearful,no loss of interest in activities,no significant changes in weight,no sleep disturbances or insomnia,no agitation,no loss of energy,no feelings of worthlessness or guilt,no thoughts of suicide,no history of depression, andno history of mood disorders.Functional AbilityFor hearing, patient reportsno loss of hearing. For vision, patient reportsno vision problems.ROS as noted in the HPI doing well no major issues Steven Segal DO [address] [place], [address], [facility] 01/13/2021 09:41:15 2 text/html ROS as noted in the HPI c/o abnormal bruising and LE edema R>L telemed phone callpatient consents to phone call the patient reports for the last couple of weeksthe patient reports that she has been having abnormal bruising on her upper anterior thighsthe [place] work, doesn't know what they didthe patient said that they were wnl the patient reports that her right and left leg are swollen, R more than left and she has tenderness around the knee of the right side with new bruising getting into [facility] to get the results of the labs she had done fu with an US duplex [facility]O PHAM [address] [place], [address], [facility] 03/08/2022 12:16:27 4 text/html Annual WellnessReported by PatientSocial/Behavio ral HistoryFor diet and nutrition, patient reportshealthy diet. For fracture risk, patient reportsno history of fractures,no recent explained fracture,no sudden unexplained fractures, andno previous musculoskeletal injuries. For physical activity, patient reportsexercises on a regular basis,recent increase in physical activity, andgood physical condition. For additional lifestyle factors, patient reportsno tobacco use,no alcohol intake, andstopped drinking alcohol.Mental Status:For depression risk, patient reportsnever feels sad, empty, or tearful,no loss of interest in activities,no significant changes in weight,no sleep disturbances or insomnia,no agitation,no loss of energy,no feelings of worthlessness or guilt,no thoughts of suicide,no history of depression, andno history of mood disorders.Functional AbilityFor hearing, patient reportsno loss of hearing. For vision, patient reportsno vision problems. the patient is still having urinary symptomsstill frequency and some sense of not urinary completely the patient has a lot of nocturia symptomsthe patient reports that [address] [place], [address], [facility] 03/09/2024 13:43:50 5 text/html Annual WellnessReported by PatientSocial/Behavio ral HistoryFor diet and nutrition, patient reportshealthy diet,discussed vitamin and supplement use,discussed portion control,discussed maintaining calcium balance, anddiscussed diet improvement. For fracture risk, patient reportsno history of fractures,no recent explained fracture,no sudden unexplained fractures, andno previous musculoskeletal injuries. For physical activity, patient reportsexercises on a regular basis,recent increase in physical activity, andgood physical condition. For additional lifestyle factors, patient reportsno tobacco useanddrinks alcohol (mild-moderate).Menta l Status:For depression risk, patient reportsnever feels sad, empty, or tearful,no loss of interest in activities,no significant changes in weight,no sleep disturbances or insomnia,no agitation,no loss of energy,no feelings of worthlessness or guilt,no thoughts of suicide,no history of depression, andno history of mood disorders.Functional AbilityFor hearing, patient reportsno loss of hearing. For vision, patient reportsno vision problems.ROS as noted in the HPI the patient is seeing a psych doctor for anxiety and PTSDneeds genetic screening for BRCA and CHEK2 since she has fam hx of breast cancer the patient will think about cortisone injection in her L shoulderwill keep note in the chart [place] [place], [address], [facility] 03/20/2025 16:06:15 5 text/html ROS as noted in the HPI c/o low back pain the patient reports pain in the L side on the low backaround L3 to L4no radiation down the left legthe patient reports that the only thing that happened was 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
--- OUTSIDE RECORDS SUMMARY | 2025-08-05 21:08 | XMS_ITS | Encounter Summary ---
Author Organization [facility] Address [address] [address] Phone Care Team Providers Care Chiropractor Assistant Name Role Phone Steven Segal DO Primary Care Provider [phone] Steven Segal DO Unavailable Katerin Guallpa PARACHUTE MENDER Unavailable [phone] Yue Chambers NP Unavailable Clarissa Barnes MD Unavailable [phone] Lewis Kong MD Unavailable Unavailable Kathy Celestin PARACHUTE MENDER Unavailable Lynne Hays PARACHUTE MENDER Unavailable [phone] Pema Corea MD Unavailable Encounter Details Date Type Department Care Team (Late st Contact Info) Description 05/19/2020 Ancillary Orders Virtual Department [address] [place] [address] Steven Segal DO 179 [facility] [place] [address] Encounter for pre-employment examination Social History Tobacco Use Types Packs/Day Years [...] as of this encounter Visit Diagnoses Diagnosis Encounter for pre-employment examination documented in this encounter Care Teams Chiropractor Assistant Relationship Specialty Start Date End Date Steven Segal DO PCP - General 02/19/14 Steven Sgeal DO Historical LMR Provider 06/06/17 Katerin Guallpa NP [address] [place] [address] Historical LMR Provider 06/06/17 2 Yue Chambers PARACHUTE MENDER [address] [place] [address] Historical LMR Provider 06/06/17 2 Clarissa Barnes MD [address] [place] [email or web address] Historical LMR Provider 06/06/17 08/29/21 Lewis Kong MD Historical LMR Provider 06/06/17 08/29/21 Kathy Celestin, PARACHUTE MENDER [address] [place] [address] [email or web address] Historical LMR Provider 06/06/17 2 Lynne Hays NP [address] [place] [address] Historical LMR Provider 06/06/17 2 Pema Corea MD 15 [facility], [address] [place] [address] [email or web address] Historical LMR Provider 06/06/17 documented as of this encounter Additional Source Comments The information contained in this document represents components of the legal health record. It is not the complete legal health record.[facility]
--- OUTSIDE RECORDS SUMMARY | 2025-08-05 21:08 | XMS_ITS | Encounter Summary ---
Author Organization [facility] Address 399 [facility] [address] [place] [address] Phone Care Team Providers Care Plant Production Manager Name Role Phone Steven Segal DO Primary Care Provider Steven Segal DO Unavailable Katerin Guallpa TRAY LINE WORKER Unavailable [phone] Yue Chambers NP Unavailable Clarissa Barnes MD Unavailable Lewis Kong MD Unavailable Unavailable Kathy Celestin TRAY LINE WORKER Unavailable Lynne Hays TRAY LINE WORKER Unavailable [phone] Pema Corea MD Unavailable Encounter Details Date Type Department Care Team (Late st Contact Info) Description 04/19/2018 Ancillary Orders Virtual Department [address] [place] [address] Steven Segal DO 179 [facility] [place] [address] [place] [address] Breast screening Social History Tobacco Use Types Packs/Day Years Used Date Smoking Tobacco: Never Assessed Comments Unknown Sex and Gender Information Value Date Recorded Sex Assigned at Female 01/03/2022 12:31 PM EDT Legal Sex Female 5:05 PM EST Gender Identity Female 01/03/2022 12:31 PM EDT Sexual Orientation Straight 01/03/2022 12 :32 PM EDT documented as of this encounter Plan of Treatment Not on file documented as of this encounter Results * BI MAMMOGRAM SCREENING WITH TOMOSYNTHESIS WITH CAD (BILATERAL) (07/06/2018 5:50 PM EST) Anatomical Region Laterality Modality Breast Left, Breast Right, Breast Bilateral Bila teral Mammography 07/07/2018 8:43 AM EST Impressions 07/07/2018 8:46 AM EST No findings suspicious for malignancy. In the absence of a worrisome palpable abnormality, annual screening mammography is recommended. BI-RADS CATEGORY: 2 - Benign finding. DENSITY: There are scattered fibroglandular densities. POS [id number] Narrative 07/07/2018 8:46 AM EST COMPARISON: 12/20/2011 through 03/21/2017. Bilateral 3-D tomosynthesis with 2-D reconstructions in the CC and MLO projection of each breast was obtained. Computer-aided detection system also utilized. No new mass, asymmetry, architectural distortion or suspicious calcifications have become apparent on either side. Chronic asymmetric densities in the central right breast are becoming less conspicuous Procedure Note Lewis Silva MD - 07/07/2018 COMPARISON: 12/20/2011 through 03/21/2017. Bilateral 3-D tomosynthesis with 2-D reconstructions in the CC and MLOprojection of each breast was obtained. Computer-aided detection systemalso utilized. No new mass, asymmetry, architectural distortion or suspiciouscalcifications have become apparent on either side. Chronic asymmetric densities in the central right breast are becomingless conspicuous IMPRESSION: No findings suspicious for malignancy. In the absence of a worrisomepalpable abnormality, annual screening mammography is recommended. BI-RADS CATEGORY: 2 - Benign finding. DENSITY: There are scattered fibroglandular densities. POS [id number] us Steven A Bigda DO IMG MG EXAMS Final Result documented in this encounter Visit Diagnoses Diagnosis Breast screening Breast screening, unspecified Breast screening Breast screening, unspecified documented in this encounter Care Teams Plant Production Manager Relationship Specialty Start Date End Date Bigda, Steven A, DO PCP - General 02/19/14 Steven SegalDO Historical LMR Provider 06/06/17 Katerin Guallpa NP [address] [place] [address] Historical LMR Provider 06/06/17 2 Yue Chambers TRAY LINE WORKER [address] [place] [address] Historical LMR Provider 06/06/17 2 Clarissa Barnes MD [address] [place] [email or web address] Historical LMR Provider 06/06/17 08/29/21 Lewis Kong MD Historical LMR Provider 06/06/17 08/29/21 Kathy Celestin TRAY LINE WORKER [address] [place] [address] [email or web address] Historical LMR Provider 06/06/17 2 Lynne Hays NP [address] [place] [address] Historical LMR Provider 06/06/17 2 Pema Corea MD [address] [place] [address] [email or web address] Historical LMR Provider 06/06/17 documented as of this encounter Additional Source Comments The information contained in this document represents components of the legal health record. It is not the complete legal health record.[facility]
--- OUTSIDE RECORDS SUMMARY | 2025-08-05 21:08 | XMS_ITS | Encounter Summary ---
Author Organization [facility] Address [address] [address] Phone Care Team Providers Care Skin Tanner Name Role Phone Steven Segal DO Primary Care Provider [phone] Steven Segal DO Unavailable Katerin Guallpa COVERSTITCH BINDER Unavailable [phone] Yue Chambers NP Unavailable Clarissa Barnes MD Unavailable [phone] Lewis Kong MD Unavailable Unavailable Kathy Celestin COVERSTITCH BINDER Unavailable Lynne Hays COVERSTITCH BINDER Unavailable Pema Corea MD Unavailable Encounter Details Date Type Department Care Team (Late st Contact Info) Description 10/23/2019 Ancillary Orders Virtual Department [address] [place] [address] Steven Segal DO 179 [facility] [place] [address] [place] [address] Breast screening Social History Tobacco Use Types [...] MAMMOGRAM SCREENING WITH TOMOSYNTHESIS WITH CAD (BILATERAL) (03/10/2020 2:27 PM EDT) Anatomical Region Laterality Modality Breast Left, Breast Right, Breast Bilateral Bila teral Mammography 03/10/2020 3:50 PM EDT Impressions 03/10/2020 3:51 PM EDT No mammographic evidence of malignancy. Recommend routine annual surveillance. BI-RADS CATEGORY: 1 - Negative. DENSITY: There are scattered fibroglandular densities. POS - [id number] Narrative 03/10/2020 3:51 PM EDT 49-year-old female with no current breast symptoms. Comparison made to previous on 07/06/2018 and as far back as 12/25/2012. Interpretation made in conjunction with computer-aided detection and tomosynthesis. There are scattered areas of fibroglandular density. There are no suspicious masses, areas of architectural distortion, or suspicious clusters of microcalcifications. Procedure Note Black Salter MD - 03/10/2020 49-year-old female with no current breast symptoms. Comparison made toprevious on 07/06/2018 and as far back as 12/25/2012. Interpretation madein conjunction with computer-aided detection and tomosynthesis. There are scattered areas of fibroglandular density. There are no suspicious masses, areas of architectural distortion, orsuspicious clusters of microcalcifications. IMPRESSION: No mammographic evidence of malignancy. Recommend routine annualsurveillance. BI-RADS CATEGORY: 1 - Negative. DENSITY: There are scattered fibroglandular densities. POS - [id number] us Steven A Bigda DO IMG MG EXAMS Final Result documented in this encounter Visit Diagnoses Diagnosis Breast screening Breast screening, unspecified Breast screening Breast screening, unspecified documented in this encounter Care Teams Skin Tanner Relationship Specialty Start Date End Date Steven SegalDO PCP - General 02/19/14 Steven Segal DagobertoDO Historical LMR Provider 06/06/17 Katerin Guallpa, YOMI [address] [place] [address] Historical LMR Provider 06/06/17 2 Yue Chambers COVERSTITCH BINDER [address] [place] [address] Historical LMR Provider 06/06/17 2 Clarissa Barnes MD [address] [place] [address] [email or web address] Historical LMR Provider 06/06/17 08/29/21 Lewis Kong MD Historical LMR Provider 06/06/17 08/29/21 Kathy Celestin, COVERSTITCH BINDER [address] [place] [address] [email or web address] Historical LMR Provider 06/06/17 2 Lynne Hays, COVERSTITCH BINDER [address] [place] [address] Historical LMR Provider 06/06/17 2 Pema Corea MD [address] [place] [address], [address] [place] [address] [email or web address] Historical LMR Provider 06/06/17 documented as of this encounter Additional Source Comments The information contained in this document represents components of the legal health record. It is not the complete legal health record.[facility]
--- OUTSIDE RECORDS SUMMARY | 2025-08-05 21:08 | XMS_ITS | Encounter Summary ---
Author Organization [facility] Address [address] [place] [address] Phone Care Team Providers Care Emergency Room Clerk Name Role Phone Steven Segal DO Primary Care Provider [phone] Steven Segal DO Unavailable Encounter Details Date Type Department Care Team (Late st Contact Info) Description 05/30/2023 Procedure Pass [facility], [address] [address] Social History Tobacco Use Types Packs/Day Years [...] on filedocumented in this encounter Care Teams Emergency Room Clerk Relationship Specialty Start Date End Date EnriqueSteven dawson DO [email or web address] PCP - General 02/19/14 Luzma Steven ArenasDO [email or web address] Historical LMR Provider 06/06/17 documented as of this encounter Additional Source Comments The information contained in this document represents components of the legal health record. It is not the complete legal health record.[facility]
--- OUTSIDE RECORDS SUMMARY | 2025-08-05 21:08 | XMS_ITS | Encounter Summary ---
Author Organization [facility] Address [address] [employer] [facility] [address] [place] [address] Phone Care Team Providers Care Hand Braille Transcriber Name Role Phone Steven Segal Primary Care Provider [phone] LuzmaSteven Unavailable Katerin Guallpa CITY PLANNING AIDE Unavailable Yue Chambers NP Unavailable Clarissa Barnes MD Unavailable [phone] Lewis Kong MD Unavailable Unavailable Kathy Celestin CITY PLANNING AIDE Unavailable Lynne Hays CITY PLANNING AIDE Unavailable [phone] Pmea Corea MD Unavailable [phone] Encounter Details Date Type Department Care Team (Latest Contact Info) Description 01/18/2019 Transcribe Orders [address] [address] Elyssa Tidwell PA-C [address] [place] [address] [email or web address] Avitaminosis D (Primary Dx); Routine general medical examination at a health care facility; Screening for ischemic heart disease Social History Tobacco Use Types Packs/Day Years [...] documented as of this encounter Results * (ABNORMAL) 25-OH vitamin D (01/18/2019 7:54 AM EDT) 25 [place] VIT D (TOTAL) 16(L) 30 - 60 ng/mL [facility] Blood 01/18/2019 7:54 AM EDT 01/18/2019 8:23 AM EDT November Diann BRYAN LAB BLOOD BKR ORDERABLES Fin al Result Performing Organization Address City/State/[facility] Co de Phone Number [address] [address] * (ABNORMAL) Lipid panel (01/18/2019 7:54 AM EDT) HDL 58 mg/dL [facility] Comment: Interpretation <40 mg/dL: Low HDL cholesterol (major risk factor for CHD) Greater than or equal to 60 mg/dL: High HDL cholesterol ( negative risk factor for CHD) HDL - cholesterol is affected by a number of factors, e.g. smoking, excerise, hormones, sex and age. CHOLESTEROL 166 0 - 240 mg/dL [facility] TRIGLYCERIDES 78 30 - 160 mg/dL [facility] LDL 92 50 - 129 mg/dL [facility] Comment: LDL levels in terms of risk for coronary heart disease: <100 mg/dL: Optimal 100-129 mg/dL: Near or above optimal 130-159 mg/dL: Borderline high 160-189 mg/dL: High >190 mg/dL: Very High CARDIAC RISK RATIO 2.9(L) 3.3 - 4.4 C [facility] Blood 01/18/2019 7:54 AM EDT 01/18/2019 8:23 AM EDT November Diann PERRY-Nikhil LAB BLOOD BKR ORDERABLES Fin al Result [address] [address] * Comprehensive metabolic panel (01/18/2019 7:54 AM EDT) SODIUM 140 133 - 146 mmol/L [facility] POTASSIUM 4.4 3.3 - 5.1 mmol/L [facility] CHLORIDE 104 96 - 108 mmol/L [facility] CO2 25 21 - 35 mmol/L [facility] BUN 12 6 - 19 mg/dL [facility] CREATININE 0.60 0.5 - 1.5 mg/dL [facility] GLUCOSE 84 70 - 99 mg/dL [facility] ALBUMIN 4.6 3.9 - 4.8 g/dL [facility] TOTAL PROTEIN 7.6 6.5 - 8.0 g/dL [facility] CALCIUM 9.7 8.4 - 10.3 mg/dL [facility] ALKALINE PHOSPHATASE 51 39 - 117 U/L [facility] TOTAL BILIRUBIN 0.5 0.0 - 1.2 mg/dL [facility] AST 19 0 - 37 U/L [facility] ALT 16 0 - 40 U/L [facility] GLOBULIN 3.0 1 - 4.8 g/dL [facility] EGFR 109 >59 mL/min/1.7 3m2 [facility] Comment:If patient is black, multiply result by 1.159. Estimated glomerular filtration rate calculated using the CKD-EPI equation. ANION GAP 15 10 - 20 mmol/L [facility] Blood 01/18/2019 7:54 AM EDT 01/18/2019 8:23 AM EDT November Diann PERRY-Nikhil LAB BLOOD BKR ORDERABLES Fin al Result [address] [address] * CBC and differential (01/18/2019 7:54 AM EDT) WBC 5.52 3.40 - 11.20 K/uL [facility] RBC 4.66 3.80 - 4.80 M/uL [facility] HGB 13.9 12.0 - 15.0 g/dL [facility] HCT 41.7 36.0 - 46.0 % [facility] PLT 260 130 - 400 K/uL [facility] MCV 89.5 79.0 - 98.0 fL [facility] MCH 29.8 27.0 - 34.8 pg [facility] MCHC 33.3 31.5 - 36.0 g/dL [facility] RDW 13.1 10.8 - 14.6 % [facility] MPV 10.1 9.4 - 12.4 fl [facility] NRBC 0.00 0.00 /100 WBCs [facility] ABSOLUTE NRBC 0.00 0.00 K/uL [facility] DIFF METHOD Auto [facility] NEUTS 61.9 45.30 - 77.70 % [facility] LYMPHS 25.2 12.30 - 39.70 % [facility] MONOS 6.5 4.10 - 12.80 % [facility] EOS 5.3 0 - 7.2 % [facility] BASOS 0.9 0 - 2.80 % [facility] Granulocytes, immature (%) 0.2 0.0 - 0.9 % [facility] ABSOLUTE NEUTS 3.42 1.40 - 7.70 K/uL [facility] ABSOLUTE LYMPHS 1.39 0.60 - 3.20 K/uL [facility] ABSOLUTE MONOS 0.36 0.11 - 0.59 K/uL [facility] ABSOLUTE EOS 0.29 0.01 - 0.50 K/uL [facility] ABSOLUTE BASOS 0.05 0.00 - 0.08 K/uL [facility] Granulocytes, immature 0.01 0.00 - 0.05 K/uL [facility] Blood 01/18/2019 7:54 AM EDT 01/18/2019 8:23 AM EDT us November Diann BRYAN LAB BLOOD BKR ORDERABLES Fin al Result [facility] [address] [place] [address] documented in this encounter Visit Diagnoses Diagnosis Avitaminosis D- Primary Unspecified vitamin D deficiency Routine general medical examination at a health care facility Screening for ischemic heart disease documented in this encounter Care Teams Hand Braille Transcriber Relationship Specialty Start Date End Date Luzma Steven ArenasDO PCP - General 02/19/14 Steven Segal DO Historical LMR Provider 06/06/17 Katerin Guallpa CITY PLANNING AIDE [address] [place] [address] Historical LMR Provider 06/06/17 2 Yue Chambers CITY PLANNING AIDE [address] [place] [address] Historical LMR Provider 06/06/17 2 Clarissa Barnes MD [address] [place] [address] Historical LMR Provider 06/06/17 08/29/21 Lewis Kong MD Historical LMR Provider 06/06/17 08/29/21 Kathy Celestin CITY PLANNING AIDE [address] [place] [address] [email or web address] Historical LMR Provider 06/06/17 2 Lynne Hays CITY PLANNING AIDE [address] [place] [address] Historical LMR Provider 06/06/17 2 Pema Corea MD [address] [place] [address], [address] [place] [address] [email or web address] Historical LMR Provider 06/06/17 documented as of this encounter Additional Source Comments The information contained in this document represents components of the legal health record. It is not the complete legal health record.[facility]
--- OUTSIDE RECORDS SUMMARY | 2025-08-05 21:08 | XMS_ITS | Encounter Summary ---
Author Organization [facility] Address [address] [place] [address] Phone Care Team Providers Care National Sales Director Name Role Phone Steven Segal DO Primary Care Provider [phone] Steven Segal DO Unavailable Encounter Details Date Type Department Care Team (Latest Contact Info) Description 06/27/2024 Transcribe Orders Virtual Department [address] [place] [address] Honey Rascon PA 6 [facility] [place] [address] [place] [address] Low back pain with sciatica, sciatica laterality unspecified, unspecified back pain laterality, unspecified chronicity (Primary Dx) Social History Tobacco Use Types [...] as of this encounter Results * XR LUMBOSACRAL SPINE 2-3 VIEWS (06/28/2024 10:09 AM EST) Anatomical Region Laterality Modality L-spine Computed Radiogr aphy 06/28/2024 11:4 0 AM EST Impressions 06/28/2024 11:41 AM EST Degenerative changes of the lumbar spine. Narrative 06/28/2024 11:41 AM EST XR LUMBOSACRAL SPINE 2-3 VIEWS Referring clinician's provided indication for this examination in Epic: Outside Radiology Order; lumbago COMPARISON: None FINDINGS: No malalignment. Lumbar vertebral body heights are maintained. Mild multilevel disc height loss. Small endplate osteophytes. Multilevel facet arthropathy. Mild degenerative changes of the SI joints. Procedure Note Yohan Cortes MD - 06/28/2024 XR LUMBOSACRAL SPINE 2-3 VIEWS Referring clinician's provided indication for this examination in Epic:Outside Radiology Order; lumbago COMPARISON: None FINDINGS: No malalignment. Lumbar vertebral body heights are maintained. Mildmultilevel disc height loss. Small endplate osteophytes. Multilevel facetarthropathy. Mild degenerative changes of the SI joints. IMPRESSION: Degenerative changes of the lumbar spine. Honey PERRY IMG XR SPINE Final Resul t documented in this encounter Visit Diagnoses Diagnosis Low back pain with sciatica, sciatica laterality unspecified, unspecified back pain laterality, unspecified chronicity- Primary Low back pain with sciatica, sciatica laterality unspecified, unspecified back pain laterality, unspecified chronicity documented in this encounter Care Teams National Sales Director Relationship Specialty Start Date End Date Steven Segal DO [email or web address] PCP - General 02/19/14 Steven Segal DO [email or web address] Historical LMR Provider 06/06/17 documented as of this encounter Additional Source Comments The information contained in this document represents components of the legal health record. It is not the complete legal health record.[facility]
--- OUTSIDE RECORDS SUMMARY | 2025-08-05 21:08 | XMS_ITS | Encounter Summary ---
Author Organization [facility] Address [address] [facility] [address] [place] [address] Phone Care Team Providers Care General Office Worker Name Role Phone Steven Segal DO Primary Care Provider [phone] Steven Segal DO Unavailable Encounter Details Date Type Department Care Team (Late st Contact Info) Description 03/25/2022 Procedure Pass [facility], [address] [address] Social History Tobacco Use Types Packs/Day Years [...] on filedocumented in this encounter Care Teams General Office Worker Relationship Specialty Start Date End Date Steven Segal DO PCP - General 02/19/14 Steven Segal DO [email or web address] Historical LMR Provider 06/06/17 documented as of this encounter Additional Source Comments The information contained in this document represents components of the legal health record. It is not the complete legal health record.[facility]
--- OUTSIDE RECORDS SUMMARY | 2025-08-05 21:08 | XMS_ITS | Encounter Summary ---
Author Organization [facility] Address [address] [place] [address] Phone Care Team Providers Care Order Processing Specialist Name Role Phone Steven Segal DO Primary Care Provider [phone] Steven Segal DO Unavailable Encounter Details Date Type Department Care Team (Late st Contact Info) Description 03/22/2024 Ancillary Orders [facility], X-Ray - [facility] [address] [place] [address] Honey Rascon PA [address] [place] [address] [place] [address] Pain in left toe(s) (Primary Dx) Social History Tobacco Use Types [...] as of this encounter Results * XR FOOT 3 OR MORE VIEWS (LEFT) (03/22/2024 1:21 PM EDT) Anatomical Region Laterality Modality Foot Left Computed Radiogr aphy 03/23/2024 9:01 AM EDT Impressions 03/23/2024 9:03 AM EDT No acute osseous abnormality. Mild scattered degenerative changes. Mild hallux valgus with bunion. Narrative 03/23/2024 9:03 AM EDT XR FOOT 3 OR MORE VIEWS (LEFT) Referring clinician's provided indication for this examination in Epic: Pain COMPARISON: None FINDINGS: No acute fracture or dislocation. Mild hallux valgus with bunion. Mild scattered degenerative changes throughout the foot. Calcaneal enthesophytes. No significant soft tissue swelling. Procedure Note Yohan Cortes MD - 03/23/2024 XR FOOT 3 OR MORE VIEWS (LEFT) Referring clinician's provided indication for this examination in Epic:Pain COMPARISON: None FINDINGS: No acute fracture or dislocation. Mild hallux valgus with bunion. Mildscattered degenerative changes throughout the foot. Calcanealenthesophytes. No significant soft tissue swelling. IMPRESSION: No acute osseous abnormality. Mild scattered degenerative changes. Mild hallux valgus with bunion. Honey PERRY IMG XR LOWER EXTREMITY Maame l Result documented in this encounter Visit Diagnoses Diagnosis Pain in left toe(s)- Primary Pain in left toe(s) documented in this encounter Care Teams Order Processing Specialist Relationship Specialty Start Date End Date Steven Segal DO PCP - General 02/19/14 Steven Segal DO Historical LMR Provider 06/06/17 documented as of this encounter Additional Source Comments The information contained in this document represents components of the legal health record. It is not the complete legal health record.[facility]
--- OUTSIDE RECORDS SUMMARY | 2025-08-05 21:08 | XMS_ITS | Clinical Summary ---
Author Organization [facility] Address [address] [facility] [address] [place] [address] Phone Care Team Providers Care Chief Scientist Name Role Phone Steven Segal DO Primary Care Provider [phone] EnriqueSteven dawson DO Unavailable Allergies Active Allergy Reactions Criticality Noted Date Comments Avocado Cramps,Diarrhea,GI Upset,Itching,Naus ea and/or Vomiting,Other (See Comments) Low 01/06/2022 GI upset, itchy Methylprednisolone Swelling 06/21/2019 Other reaction(s): Facial swelling Other GI Upset 05/11/2018 [place] Prednisone 12/14/2020 Other reaction(s): Avocado Gi upset/ Itchy many symptomsItchy/Hiv es [place] (Lspoyajr-Lueprb-Kk) Hives Medium 12/14/2020 Medications levonorgestreL (MIRENA) 20 mcg/24 hours (7 yrs) 52 mg intrauterine device Active multivit with minerals/lutein (MULTIVITAMIN 50 PLUS ORAL) Active cholecalciferol, vitamin D3, (VITAMIN D3 ORAL) Take by mouth daily. Active estradioL (ESTRACE) 0.01 % (0.1 mg/gram) vaginal creamIndications :Menopausal vaginal dryness Place a pea sized amount of cream on the vaginal opening three times weekly 42.5 g Active Additional Information Patient not taking.Reported on 02/14/2023 naproxen (NAPROSYN) 500 MG tablet Take 1 tablet (500 mg total) by mouth 2 (two) times a day for 3 days. Then twice daily as needed for pain, inflammation 20 tablet 3 Active Active Problems Problem Noted Date Diagnosed Date Family history of breast cancer 12/26/2020 Overview (12/26/2020): Mother, age 43. Pt had visit 2019 with genetics counselor, opted not to do genetic testing. Yearly mammography Assessment & Plan (12/26/2020 4:49 PM EDT): She may still want to get genetics tested. We discuss getting life insurance settled first, if desired Lactose intolerance 01/12/2019 Resolved Problems Problem Noted Date Diagnosed Date Resolved Date Gallstone 01/12/2019 12/14/2020 History of depression 05/24/20182020 IUD (intrauterine device) in place 05/11/2018 01/06/2022 Overview (12/26/2020): Placed 12/2014 Assessment & Plan (12/26/2020 4:50 PM EDT): Reviewed options for removal or replacement. Likely plan for removal in 2021 at the 7 year steven Family history of breast cancer 05/11/2018 12/14/2020 Overview (01/30/2020): Mother diagnosed at age 43, at 46. Maternal grandmother and aunt NO cancer. No other cancers in family Pt had the genetics appointment, and she opted NOT to have genetic testing Immunizations Immunization Administration Dates Next Due COVID-19 (Pre-06/13) Moderna Vaccine, mRNA, PF 0 09/19/2020,08/19/2020 Influenza Quadrivalent Preservative Free IM 04/22 MMR 05/16/2020 Tdap 11/02/2017 Family History Medical History Relation Comments Glaucoma Father Glucose intolerance Father Heart failure Father Breast cancer Mother Relation Status Comments Father Alive Maternal Grandfather Maternal Grandmother Mother @ age 43 Paternal Grandfather Paternal Grandmother Sister Alive Social History Tobacco Use Types Packs/Day Years Used Date Smoking Tobacco: Former Cigarettes Smokeless Tobacco: Never Tobacco Cessation:Counseling Given: Not Answered Alcohol Use Standard Drinks/Week Comments No 0 [...] file Not on file Not on file Last Filed Vital Signs Vital Sign Reading Time Taken Comments Blood Pressure 113/75 09/11/2024 8:39 AM EST Pulse 77 09/11/2024 8:39 AM EST Temperature 36.6 C (97.9 F) 09/11/2024 8:39 AM EST Respiratory Rate 16 09/11/2024 8:39 AM EST Oxygen Saturation 100% 09/11/2024 8:39 AM EST Inhaled Oxygen Concentration - - Weight 72.6 kg (160 lb) 02/14/2023 2:42 PM EDT p er pt Height 167.6 cm (5' 6 ) 01/06/2022 8:49 AM EDT Body Mass Index 25.82 01/06/2022 8:49 AM EDT Plan of Treatment Health Maintenance Due Date Last Done Comments DEPRESSION SCREENING 1983 SMOKING Hx and SMOKELESS TOBACCO SCREENING 1984 HEPATITIS C SCREENING 1989 HIV ONE-TIME SCREENING (18-65 YEARS) 1989 COLOGUARD 2016 COLONOSCOPY 2016 COLORECTAL CANCER SCREENING 2016 FIT TEST 2016 FOBT 2016 SIGMOIDOSCOPY 2016 VIRTUAL COLONOSCOPY 2016 PNEUMOCOCCAL VACCINES (50+ years) (1 of 1 - PCV) 2021 PAP SMEAR 12/27/2023 12/26/2020, 05/24, 06/21/2019, Additional history exists SCREENING FOR DIABETES 01/17/2024 01/16/2021 INFLUENZA VACCINE (#1) 2025 05/03/2020 COVID-19 VACCINE ( season) 2025 07/03/2021, 09/19/2020, 08/19/2020 LIPID PANEL 01/16/2026 01/16/2021, 01/18/2019 MAMMOGRAM 01/16/2027 01/16/2025, 12/0 08/2022, 06/22/2022, Additional history exists Adult Td,Tdap Booster 11/03/2027 11/02/2017 RSV VACCINE (1 - 1-dose 75+ series) 2046 ZOSTER VACCINES Completed 09/29/2021, 07/29/2021 HEPATITIS A VACCINES Aged Out No long er eligible based on patient's age to complete this topic HIB VACCINES Aged Out No longer eligi ble based on patient's age to complete this topic MENINGOCOCCAL VACCINES (ACWY) Aged Out No longer eligible based on patient's age to complete this topic MENINGOCOCCAL VACCINES (B) Aged Out N o longer eligible based on patient's age to complete this topic Medical Devices Not on file Procedures Procedure Name Priority Date/Time Associated Diagnosis Comments BI MAMMOGRAM SCREENING WITH TOMOSYNTHESIS WITH CAD (BILATERAL) Routine 01/16/2025 12:58 PM EDT Breast screening LIPID PANEL Routine 01/16/2021 7:51 AM EDT Routine general medical examination at a health care facility PAP TEST Routine 12/26/2020 12:00 AM EDT from Last 3 Months or Most Recently Relevant to Health Maintenance Results * BI MAMMOGRAM SCREENING WITH TOMOSYNTHESIS WITH CAD (BILATERAL) (01/16/2025 12:58 PM EDT) Anatomical Region Laterality Modality Breast Left, Breast Right, Breast Bilateral Bila teral Mammography 01/17/2025 8:50 AM EDT Impressions 01/17/2025 12:06 PM EDT No mammographic evidence of malignancy in either breast. Annual screening mammography is recommended. BI-RADS 1 NEGATIVE The patient will be notified of the results and recommendations. Narrative 01/17/2025 12:06 PM EDT BI MAMMOGRAM SCREENING WITH TOMOSYNTHESIS WITH CAD (BILATERAL) Additional patient information: Screening. COMPARISON: Comparison is made with relevant prior imaging. Breast composition: There are scattered areas of fibroglandular density. FINDINGS: There has been no change in the mammographic findings since previous examination. No abnormal masses, suspicious calcifications, or other significant findings are identified mammographically in either breast. us Provider Not In System PhD IMG MG EXAMS Final Result * (ABNORMAL) Lipid panel (01/16/2021 7:51 AM EDT) HDL 61 mg/dL [facility] Comment: Interpretation <40 mg/dL: Low HDL cholesterol (major risk factor for CHD) Greater than or equal to 60 mg/dL: High HDL cholesterol ( negative risk factor for CHD) HDL - cholesterol is affected by a number of factors, e.g. smoking, excerise, hormones, sex and age. CHOLESTEROL 166 0 - 240 mg/dL [facility] TRIGLYCERIDES 67 30 - 160 mg/dL [facility] LDL 92 50 - 129 mg/dL [facility] Comment: LDL levels in terms of risk for coronary heart disease: <100 mg/dL: Optimal 100-129 mg/dL: Near or above optimal 130-159 mg/dL: Borderline high 160-189 mg/dL: High >190 mg/dL: Very High CARDIAC RISK RATIO 2.7(L) 3.3 - 4.4 C [facility] Blood 01/16/2021 7:51 AM EDT 01/16/2021 7:57 AM EDT us Steven Segal DO LAB BLOOD BKR ORDERABLES Final R esult [facility] [address] [place] [address] * Pap Smear (12/26/2020 12:00 AM EDT) 12/26/2020 12/29/2020 9:2 9 AM EDT Narrative SEE NARRATIVE - 01/05/2021 11:55 AM EDT [address] [address] [place]: Aidee Ahn MD ACID PUMPER Cytology Report FINAL DIAGNOSIS A. PAP SMEAR (SUREPATH) CE: SPECIMEN ADEQUACY: Satisfactory for evaluation; transformation zone present. INTERPRETATION: NEGATIVE FOR INTRAEPITHELIAL LESION OR MALIGNANCY. Reactive changes. Electronically Signed Out By: MD Fermin Butler CT(ASCP) By his/her signature above, the pathologist listed as making the Final Diagnosis certifies that he/she has personally reviewed this case and confirmed or corrected the diagnosis. The Pap test is a screening test primarily for squamous cancers and precursors and has associated false-negative and false-positive results. New technologies such as liquid-based preparations may decrease but will not eliminate all false-negative results. Regular sampling and follow-up of unexplained clinical signs and symptoms are recommended to minimize false negative results. PROCEDURES/ADDENDA HPV Testing (Requested) Ordered Date: 12/29/2020 A. PAP SMEAR (SUREPATH) CE: Human Papilloma Virus Test Negative for high-risk human papillomavirus types 16, 18, 45 and the Other high risk probe set (Includes 31, 33, 35, 39, 51, 52, 56, 58, 59, 66, 68) by [employer] Onclarity HR-HPV analysis. Clinical correlation is advised. This HPV test was performed at [facility] [place], [address] [place] [address]. This test has been FDA approved for SurePath cervical cytology specimens. The accuracy and precision of this test for all other specimen sources has been verified in the Cytopathology Laboratory of the [facility] [place] and has not been cleared or approved by the U.S. Food and Drug Administration. Clinical correlation is advised. CLINICAL HISTORY Date of Last Menstrual Period: Not Provided Menstrual History: Unknown Contraceptive History: IUD Other Clinical Conditions: Screening Pap SPECIMEN SOURCE A: PAP SMEAR (SUREPATH) CE Patient Name: AAMIR HARGROVE : 1970 (Age: 50) Sex: F Institution: [facility] Date of Collection: 12/26/2020 Date of Reported: 01/05/2021 11:55 Results to: Leida Greenberg MD Leida Greenberg MD CYTOLOGY ORDERABLES Final Result SEE NARRATIVE from Last 3 Months or Most Recently Relevant to Health Maintenance Insurance [employer] PPO [employer] PPO CIGNA PPO CIGNA PPO CIGNA PPO CIGNA PPO CIGNA PPO CIGNA PPO CIGNA PPO Member Subscriber Plan / Payer (Ef fective 2012-Present) Name:Aamir Hargrove Relation to Subscriber:Spouse Name:ROB HARGROVE Date of :1974 (Home) Address: [address] [place] [address] Payer ID:[id number] (NA) Type:PPO Address: [address] [place] [phone] Care Teams Chief Scientist Relationship Specialty Start Date End Date Steven Segal DO PCP - General 02/19/14 Steven Segal DO Historical LMR Provider 06/06/17 Additional Source Comments The information contained in this document represents components of the legal health record. It is not the complete legal health record.[facility]
[2025-08-06 09:49] LABS: CA-125 6 U/mL (<35)
== END 2025-08-05 14:37 | disposition home or self-care (01) ==
LOC: HO.MANLDS 14:36
PROVIDERS: Visit Provider Physician Assistant
DX: R53.83 Other fatigue (principal); E55.9 Vitamin D deficiency, unspecified; Z82.49 Family history of ischemic heart disease and other diseases of the circulatory system; Z80.3 Family history of malignant neoplasm of breast; Z13.1 Encounter for screening for diabetes mellitus; Z13.6 Encounter for screening for cardiovascular disorders
CPT/HCPCS: 80061; 82306; 82607; 82746; 83036; 84443; 85025; 86304